=== PATIENT | male | born 1970 | race African-American/Black ===

== ENCOUNTER 2016-11-01 13:40 | Emergency (ER) | payer MEDICAID ==
[~2016-11-01] VITALS: Ht 188 cm; Wt 83.9 kg
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
[2016-11-01] MEDS ORDERED: IBUPROFEN 600 MG TABLET PO ONE (14:45)
[2016-11-01] MEDS ORDERED: IBUPROFEN 600 MG TABLET ONE (14:57)
== END 2016-11-01 14:51 | disposition home or self-care (01) ==
LOC: ER 13:40
DX: S90.02XA Contusion of left ankle, initial encounter (principal); F17.200 Nicotine dependence, unspecified, uncomplicated; Z88.0 Allergy status to penicillin; Z59.0 Homelessness; V13.4XXA Pedal cycle driver injured in collision with car, pick-up truck or van in traffic accident, initial encounter; Y93.89 Activity, other specified; Y99.8 Other external cause status; Y92.89 Other specified places as the place of occurrence of the external cause
CPT/HCPCS: 73610; 73630; A4663

== ENCOUNTER 2017-05-03 13:53 | Emergency (ER) | payer MEDICAID ==
[~2017-05-03] VITALS: Ht 188 cm; Wt 83.9 kg
--- NOTE | 2017-05-03 14:13 | NUR ---
[employer] at the bedside for report.
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
[2017-05-03] MEDS ORDERED: IBUPROFEN 600 MG TABLET PO ONE (14:15)
--- NOTE | 2017-05-03 14:25 | NUR ---
Pt out of ER for x rays.
[2017-05-03] MEDS ORDERED: IBUPROFEN 600 MG TABLET ONE (14:26)
--- NOTE | 2017-05-03 14:53 | NUR ---
Patient discharged to home in stable conditon. Written and verbal after care instructions given. Patient verbalizes understanding of instructions.
[2017-05-03 14:54] VITALS: BP 135/78
== END 2017-05-03 14:54 | disposition home or self-care (01) ==
LOC: ER 13:54
DX: S80.02XA Contusion of left knee, initial encounter (principal); S90.02XA Contusion of left ankle, initial encounter; S70.02XA Contusion of left hip, initial encounter; V19.40XA Pedal cycle driver injured in collision with unspecified motor vehicles in traffic accident, initial encounter; Y93.55 Activity, bike riding; Y92.413 State road as the place of occurrence of the external cause; Y99.9 Unspecified external cause status; Z59.0 Homelessness; Z88.0 Allergy status to penicillin
CPT/HCPCS: 71020; 72170; 73030; 73610; 73630; 99284; A4663

== ENCOUNTER 2020-09-23 03:43 | Emergency (ER) | payer MEDICAID ==
[~2020-09-23] VITALS: Ht 188 cm; Wt 104.3 kg
--- NOTE | 2020-09-23 03:54 | NUR ---
MD Choi in room to do MSE.
--- NOTE | 2020-09-23 03:55 | NUR ---
MD Choi removed medical juan armon from patient.
[2020-09-23 04:00] VITALS: BP 138/78
--- NOTE | 2020-09-23 04:00 | NUR ---
Patient discharged to home in stable condition. Written and verbal after care instructions given. Patient verbalizes understanding of instructions. Stressed follow up or return to ER for worsening s/s. Patient ambulates with steady gait, V/S stable, left with all personal belongings.
--- NOTE | 2020-09-23 04:00 | NUR ---
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 He will be going to [facility]. Room is [facility]. The nurse will be Teresa. Report will be given to .
== END 2020-09-23 04:00 | disposition home or self-care (01) ==
LOC: ER 03:47
DX: S01.01XD Laceration without foreign body of scalp, subsequent encounter (principal); X58.XXXD Exposure to other specified factors, subsequent encounter; Z59.0 Homelessness
CPT/HCPCS: A4663

== ENCOUNTER 2023-08-12 17:31 | Emergency (ER) | payer MEDICAID ==
[~2023-08-12] VITALS: Ht 188 cm; Wt 93.0 kg
[2023-08-12] MEDS ORDERED: HYDROCODONE/APAP 10-325 MG TABLET ONE (17:57)
[2023-08-12] MEDS ORDERED: HYDROCODONE/APAP 10-325 MG TABLET PO ONE (18:00)
[2023-08-12] MEDS ORDERED: HYDROMORPHONE 1 MG/1 ML DISP.SYRIN IM ONE (18:45)
[2023-08-12] MEDS ORDERED: ONDANSETRON ODT 4 MG TAB.RAPDIS SL ONE (18:45)
[2023-08-12] MEDS ORDERED: HYDROMORPHONE 1 MG/1 ML DISP.SYRIN ONE (18:47)
[2023-08-12] MEDS ORDERED: ONDANSETRON ODT 4 MG TAB.RAPDIS ONE (18:48)
[2023-08-12] MEDS ORDERED: HYDR-3980 PO (20:06)
[2023-08-12 21:09] VITALS: BP 128/82; TEMP 98.2; O2SAT 98
== END 2023-08-12 21:10 | disposition home or self-care (01) ==
LOC: ER 17:37
DX: S83.8X1A Sprain of other specified parts of right knee, initial encounter (principal); M25.551 Pain in right hip; M54.50 Low back pain, unspecified; F17.210 Nicotine dependence, cigarettes, uncomplicated; Z98.890 Other specified postprocedural states; Z59.00 Homelessness unspecified; Z88.0 Allergy status to penicillin; V29.098A Other motorcycle driver injured in collision with other motor vehicles in nontraffic accident, initial encounter; Y93.89 Activity, other specified; Y92.89 Other specified places as the place of occurrence of the external cause; Y99.8 Other external cause status
CPT/HCPCS: 72100; 72170; 73502; 73551; 73562; A4606; A4663; J1170; Q0162

== ENCOUNTER 2023-12-21 07:21 | Emergency (ER) | payer MEDICAID ==
[~2023-12-21] VITALS: Ht 188 cm; Wt 95.3 kg
[~2023-12-21 07:21] MED LIST: HYDR-3980 PO
[2023-12-21 07:28] VITALS: O2SAT 100
[2023-12-21] MEDS: IBUPROFEN 400 MG TABLET PO ONE (07:36)
[2023-12-21] MEDS ORDERED: IBUPROFEN 400 MG TABLET ONE (07:36)
[2023-12-21] MEDS ORDERED: ACETAMINOPHEN ES 500 MG TABLET ONE (07:36)
[2023-12-21] MEDS: ACETAMINOPHEN ES 500 MG TABLET PO ONE (07:37)
== END 2023-12-21 08:23 | disposition home or self-care (01) ==
LOC: ER 07:21
DX: S90.31XA Contusion of right foot, initial encounter (principal); F17.200 Nicotine dependence, unspecified, uncomplicated; Z98.890 Other specified postprocedural states; Z79.899 Other long term (current) drug therapy; Z88.0 Allergy status to penicillin; X58.XXXA Exposure to other specified factors, initial encounter; Y93.89 Activity, other specified; Y92.89 Other specified places as the place of occurrence of the external cause; Y99.8 Other external cause status
CPT/HCPCS: 73620; A4606; A4663; A9150

== ENCOUNTER 2024-03-28 21:10 | Emergency (ER) | payer MEDICAID ==
[~2024-03-28] VITALS: Ht 188 cm; Wt 104.3 kg
[2024-03-28] MEDS ORDERED: KETOROLAC TROMETHAMINE 30 MG INJ ONE (22:09)
[2024-03-28] MEDS: KETOROLAC TROMETHAMINE 30 MG INJ IM ONE (22:14)
[2024-03-28] MEDS ORDERED: CYCL5TAB PO (23:33)
[2024-03-28] MEDS ORDERED: NAPR-1009 PO (23:33)
[2024-03-28] MEDS ORDERED: NEOMY/BACITRA/POLYMYXIN B OINT UD PACKET TP ONE (23:41)
[2024-03-28] MEDS: NEOMY/BACITRA/POLYMYXIN B OINT UD PACKET TP ONE (23:42)
[2024-03-28 23:43] VITALS: BP 140/88; TEMP 97.8; O2SAT 97
== END 2024-03-28 23:45 | disposition home or self-care (01) ==
LOC: ER 21:13
DX: S39.012A Strain of muscle, fascia and tendon of lower back, initial encounter (principal); S29.012A Strain of muscle and tendon of back wall of thorax, initial encounter; S80.212A Abrasion, left knee, initial encounter; S30.810A Abrasion of lower back and pelvis, initial encounter; R03.0 Elevated blood-pressure reading, without diagnosis of hypertension; F17.200 Nicotine dependence, unspecified, uncomplicated; Z98.890 Other specified postprocedural states; Z79.891 Long term (current) use of opiate analgesic; Z79.899 Other long term (current) drug therapy; Z88.0 Allergy status to penicillin; V09.9XXA Pedestrian injured in unspecified transport accident, initial encounter; Y93.55 Activity, bike riding; Y92.89 Other specified places as the place of occurrence of the external cause; Y99.8 Other external cause status
CPT/HCPCS: 99284; 71045; 72080; 72170; 96372; J1885; A4606; A4663

== ENCOUNTER 2024-10-21 01:41 | Emergency (ER) | payer MEDICAID ==
[~2024-10-21] VITALS: Ht 188 cm; Wt 102.1 kg
[~2024-10-21 01:41] MED LIST changes: +CYCL5TAB PO; +NAPR-1009 PO
[2024-10-21 01:53] VITALS: O2SAT 99
[2024-10-21] MEDS ORDERED: TDAP DIPH,PERTUSS,TET VAC/PF 0.5 ML DISP.SYRIN IM ONE (02:08)
[2024-10-21] MEDS: TDAP DIPH,PERTUSS,TET VAC/PF 0.5 ML DISP.SYRIN IM ONE (02:15)
== END 2024-10-21 02:16 | disposition home or self-care (01) ==
LOC: ER 01:55
DX: S41.112A Laceration without foreign body of left upper arm, initial encounter (principal); F17.200 Nicotine dependence, unspecified, uncomplicated; Z88.0 Allergy status to penicillin; Z88.7 Allergy status to serum and vaccine; X58.XXXA Exposure to other specified factors, initial encounter; Y93.89 Activity, other specified; Y92.89 Other specified places as the place of occurrence of the external cause; Y99.8 Other external cause status
CPT/HCPCS: 90715; A4606; A4663